=== PATIENT | female | born 1995 | race Caucasian/White ===

== ENCOUNTER 2021-11-23 17:56 | Emergency (ER) | payer MEDICAID, SELFPAY ==
[2021-11-23 17:57] VITALS: BP 134/65; PULSE 106; RESP 15; TEMP 36.3; O2SAT 99; BMI 25.2
--- NOTE | 2021-11-23 18:25 | EDS_ITS ---
HPI HPI - Female History of Present Illness Chief Complaint: Vag Bld, Preg Informant: patient Narrative Narrative: G3, P1 at 13 weeks gestation by ultrasound presents noting slight vaginal bleeding today. She is playing with her 3-year-old son states gentle bump on her lower abdomen, denied any pain or cramping. States went to the bathroom noted blood on her underwear. There is no clots. She is concerned due to have a miscarriage 6 months ago. Denies any urinary symptoms. She is on vitamins. Denies alcohol use. States she quit marijuana recently. She just recently moved here a week ago. She is seeing [facility] Dr. Franchesca smalls at [facility]. Appointment this Tuesday. She thinks her blood type is O+. Prior similar symptoms: Yes PFSH PFSH Medical History Anxiety Depression Former smoker Home Medications promethazine 12.5 mg PO Q6H PRN 11/23/21 [History Last Taken Unknown] Allergy/AdvReac Type Severity Reaction Status Date / Time No Known Allergies Allergy Verified 11/23/21 17:59 Surgical History H/O dilation and curettage History of placement of ear tubes History of tonsillectomy and adenoidectomy Social History Smoking Status: Former smoker ROS ROS ED Constitutional Constitutional ED: Denies chills, fever(s) or sweats Eyes Eyes: Denies change in vision ENT ENT ED: Denies dysphagia or sore throat Cardiovascular Cardiovascular: Denies chest pain, leg edema, palpitations or racing heartbeat Respiratory/Chest Respiratory/Chest: Denies cough, dyspnea or dyspnea on exertion Gastrointestinal Gastrointestinal: Denies abdominal pain, diarrhea, nausea or vomiting Genitourinary Genitourinary ED: Reports other Details: Vaginal spotting ; Denies dysuria, hematuria or urinary frequency Musculoskeletal Musculoskeletal: Denies back pain, extremity pain or neck pain Integumentary Denies rash or wounds Neurologic Neurologic: Denies headache(s), paresthesias or weakness EXAM Physical Exam Const Vital Signs: 11/23/21 17:57 11/23/21 20:18 Temperature 97.4 F L Temperature Source Temporal Pulse Rate 106 H 98 Respiratory Rate 15 15 Blood Pressure 134/65 H 138/74 H Blood Pressure Mean 88 95 Pulse Ox 99 99 Oxygen Delivery Method Room Air Room Air Positive well nourished and well developed General Appearance ED: well developed and NAD HEENT Reports moist mucous membranes normocephalic and atraumatic Eyes PERRL, EOMs intact bilaterally and conjunctivae normal General Eye ED: Yes normal appearance of both eyes Neck no lymphadenopathy and supple General: Negative for tenderness Chest Wall Chest: Negative for tenderness Resp normal respiratory effort and normal air movement Effort and Inspection: symmetric chest movement; Negative for respiratory distress Cardio regular rate, regular rhythm and no murmurs Peripheral Pulses: pulses 2+ throughout GI normal to inspection, nondistended, normoactive bowel sounds and non-tender GI Narrative: Mild gravid abdomen nontender. Palpation: Negative for guarding or rebound tenderness present Narrative: Patient declined Back/Spine no CVA tenderness and no thoracic nor lumbar tenderness Extremity normal to inspection General Extremety ED: Negative for edema or tenderness General Extremity: Negative for edema Neuro oriented x3 and no sensory deficits noted Sensorium / Orientation: awake and alert Skin no rashes or lesions noted and no wounds MDM MDM MDM Narrative Medical decision making narrative: Bedside ultrasound performed by myself heart tone 125+ movement. Placenta located on the right side of the u terus. Blood type O+. Urine noted 25 leukocytes and ketones. Culture sent. She has no urine symptoms. hCG was pending when reevaluation however patient states she needed to catch her ride and not 1 wait for this. She is given information to look up on electronic records. She has a follow-up with her OB this week. Discussed threatened miscarriage with the patient. She will monitor her symptoms. She currently 13 weeks no interventions at this time. Discussed pelvic rest. All questions were answered. Lab Data Labs: Laboratory Results - last 24 hr 11/23/21 11/23/21 11/23/21 18:30 18:30 18:30 HCG, Quant [id number] H Urine Color Urine Clarity Urine pH Ur Specific [place] Urine Protein Urine Glucose (UA) Urine Ketones Urine Occult Blood Urine Nitrite Urine Bilirubin Urine Urobilinogen Ur Leukocyte Esterase Urine RBC Urine WBC Ur Squamous Epith Cells Urine Bacteria Urine Mucus Blood Type TNP O POSITIVE 11/23/21 Unknown HCG, Quant Urine Color Yellow Urine Clarity Clear Urine pH 6.0 Ur Specific [place] 1.015 Urine Protein Negative Urine Glucose (UA) Normal Urine Ketones 150 A* Urine Occult Blood Negative Urine Nitrite Negative Urine Bilirubin Negative Urine Urobilinogen Normal Ur Leukocyte Esterase 25 H Urine RBC 0 SEEN Urine WBC 0 SEEN Ur Squamous Epith Cells 0-5 SEEN Urine Bacteria 0 SEEN Urine Mucus 0 SEEN Blood Type Discharge Plan Triage Chief Complaint: Vag Bld, Preg ED Provider: Vinay Mahoney Dx/Rx/DC Orders Clinical Impression: Threatened miscarriage, 13 weeks gestation of Instructions: ED Possible Miscarriage ... Prescriptions: No Action promethazine 12.5 mg Tablet 12.5 mg PO Q6H PRN (Reason: Nausea) RF: 0 Primary Care Provider: Lulu Lomas Referrals: Lulu Lomas [Primary Care Provider] - Activity Restrictions/Additional Instructions: Your blood type is O positive. heart tones 125. Positive motion on bedside ultrasound. Your hCG quant is pending. You need to leave. Follow-up with your OB doctor as scheduled.. Disposition Disposition: Home, Self Care Discharge Date/Time: 11/23/21 20:19
[2021-11-23 18:38] LABS: Bacteria 0 SEEN /hpf (None Seen); Mucous, Urine 0 SEEN /hpf (<or=2+); Red Blood Cells-Urine 0 SEEN /hpf (0-5); White Blood Cells 0 SEEN /hpf (0-5)
[2021-11-23 18:41] LABS: Color, Urine Yellow (Yellow); Glucose, Dipstick Normal (Normal); Leukocyte Esterase-Dipstick 25 /ul (Negative); Nitrite-Dipstick Negative (Negative); Occult Blood-Urine Negative /ul (Negative); Protein-Dipstick Negative (Negative); Specific Gravity, Urine 1.015 (1.002-1.030); Urine Bilirubin Dipstick Negative (Negative); Urine Clarity Clear (Clear); Urine Urobilinogen Normal (Normal)
[2021-11-23 18:51] LABS: Ketone-Dipstick 150 mg/dl (Negative)
[2021-11-23 18:52] LABS: Squamous Epithelial Cells - UA 0-5 SEEN /hpf (5-10)
[2021-11-23 20:18] VITALS: BP 138/74; PULSE 98; RESP 15; O2SAT 99
== END 2021-11-23 20:19 | disposition home or self-care (01) ==
PROVIDERS: Emergency Provider Emergency Medicine; PCP Family Medicine; Visit Provider Emergency Medicine
DX: O20.0 Threatened abortion (principal); Z87.891 Personal history of nicotine dependence; Z3A.13 13 weeks gestation of pregnancy
CPT/HCPCS: 81001; 84702; 86900; 86901; 87086; 87088; 99283; A4216

== ENCOUNTER 2022-04-27 13:05 | Outpatient (CLI) | payer MEDICAID, SELFPAY ==
[2022-04-27 13:21] VITALS: BMI 29.3
[2022-04-27 13:26] VITALS: BP 126/59; PULSE 74; TEMP 36.9
--- NOTE | 2022-04-27 13:36 | HP.PCM_ITS ---
History and Physical Date of Admission: 05/04/22 ? HPI: The patient is a 34 year old female presenting for pre-operative visit. She is scheduled for , for breech on 05/04/22. Procedure discussed along with risks, benefits and complications. Other alternatives discussed for management. Consent form signed? Yes. ? ? PAST MEDICAL HISTORY PAST MEDICAL HISTORY Diagnosis Date ? Anemia ? ? ASCUS of cervix with negative high risk HPV 2015 ? depression ? ? Dysmenorrhea ? ? Shingles ? ? Variants of migraine, not elsewhere classified, without mention of intractable migraine without mention of status migrainosus ? ? occassional ? ? PAST SURGICAL HISTORY PAST SURGICAL HISTORY Procedure Laterality Date ? UNSPECIFIED ORAL SURGERY PROCEDURE, BY REPORT ? ? ? [place] teeth extracted ? ? ? CURRENT MEDICATIONS Current Outpatient Medications Medication Sig Dispense Refill ? multivitamin ( TABLET) 28 mg iron- 800 mcg tab Take 1 tablet by mouth once daily. ? ? ? No current facility-administered medications for this visit. ? ? ALLERGIES: Promethazine ? PERSONAL HISTORY: SOCIAL HISTORY Social History ? Tobacco Use ? Smoking status: Never ? Smokeless tobacco: Never Vaping Use ? Vaping Use: Never used Substance Use Topics ? Alcohol use: Not Currently ? ? Comment: Occasionally, not while ? Drug use: No ? FAMILY HISTORY: FAMILY HISTORY FAMILY HISTORY Problem Relation Age of Onset ? Hypertension Mother ? ? Hypertension Father ? ? Diabetes Father ? ? Dementia Father ? ? other (gout) Father ? ? No Known Problems Brother ? ? No Known Problems Brother ? ? No Known Problems Brother ? ? Diabetes Brother ? ? other (Celiac) Brother ? ? Stroke Maternal Grandmother ? ? 11/2007, ? Multiple Sclerosis Maternal Grandfather ? ? Diabetes Paternal Grandfather ? ? Heart Failure Paternal Grandfather ? ? No Known Problems Daughter ? ? No Known Problems Daughter ? ? ? REVIEW OF SYMPTOMS: GENERAL: denies fevers or chills ENDOCRINOLOGY: has not been on steroids Cardiology : denies palpitations or chest pain Respiratory: denies SOB or cough Hematology: denies history of prolonged bleeding or easy bruising or VTE Allergy: Denies history of personal or family history of allergy to anesthesia ? PHYSICAL EXAMINATION: ? VITALS: Last menstrual period 08/01/2021. ? GENERAL: The patient is well nourished, well hydrated in no acute distress. , The patient is oriented to time, place, and person. NECK: Supple. No lynphadenopathy, normal thyroid, no thyromegaly. LUNGS: Clear to auscultation bilaterally. no wheezes, rhonchi or rales HEART: Regular rate and rhythm, Normal heart sounds, and No murmurs or gallops GENITALIA: Normal external genitalia, Urethral meatus normal, Bladder nontender, normal vagina and normal vaginal tone, normal cervix, normal uterus, size and consistency, normal adnexa without masses or tenderness, and perineum WNL WET PREP: Not indicated ? IMPRESSION: Estimated Date of Delivery: 05/08/22 ? PLAN: The risks/benefits/alternatives and personal involved for the planned c- section were reviewed with the patient. Her questions were answered to her sati sfaction and she desires to proceed. Consent was signed. I reviewed with her postop instructions and expectations. ? ? I have reviewed and updated past medical and surgical history, medications and allergies Assessment & Plan Assessment/Plan (1) Breech presentation at : (2) 39 weeks gestation of : (3) Multigravida in third trimester:
[2022-04-27 14:48] LABS: Color, Urine Straw (Yellow); Glucose, Dipstick Normal (Normal); Ketone-Dipstick Negative (Negative); Leukocyte Esterase-Dipstick 500 /ul (Negative); Nitrite-Dipstick Negative (Negative); Occult Blood-Urine Negative /ul (Negative); Protein-Dipstick Negative (Negative); Urine Bilirubin Dipstick Negative (Negative); Urine Clarity Clear (Clear); Urine Urobilinogen Normal (Normal)
--- NOTE | 2022-04-27 16:59 | OB.TRI.HP_ITS ---
HPI - General General Date of Admission: 04/27/22 Date of Service: 04/27/22 Chief Complaint: Left sided pain in HPI Narrative JANE CASTORENA, is a 27 F who presents complaining of some abdominal pain and cramping. Patient gets care at an outside facility. Has been treated for recurrent urinary tract infections. PFSH PFS Medical History Anxiety Depression Former smoker Home Medications [id number] 1 mg tablet 1 tab PO DAILY 04/27/22 [History Last Taken 04/26/22 21:00] Allergy/AdvReac Type Severity Reaction Status Date / Time No Known Allergies Allergy Verified 04/27/22 13:34 Surgical History H/O dilation and curettage History of placement of ear tubes History of tonsillectomy and adenoidectomy Social History Smoking Status: Former smoker NST FHR Rate Baby A Baseline: 135 Variability:: Moderate Accelerations:: 15 x 15 Decelerations:: None NST Reactive:: Yes FHR Category:: Category I Uterine Activity:: No regular contractions Assessment & Plan (1) Multigravida in third trimester: (2) 35 weeks gestation of : PLAN: Nonstress test is reactive. No evidence of active labor. No evidence of preeclampsia. No evidence of pyelonephritis. Urine appears mostly normal e xcept for some leukoesterase. Will send urine culture. Follow-up with her obstetrical office within the week or return as needed. Just finished antibiotics for UTI so will not repeat antibiotics unless culture comes back positive because suspicion is low. Suspect is mostly musculoskeletal discomfort. (3) Abdominal cramping affecting :
== END 2022-04-27 15:15 | disposition home or self-care (01) ==
LOC: WPOUT 13:15 → WP 13:15
PROVIDERS: PCP Family Medicine; Referring Provider Obstetrics & Gynecology; Visit Provider Obstetrics & Gynecology
DX: O26.893 Other specified pregnancy related conditions, third trimester (principal); R10.9 Unspecified abdominal pain; Z87.891 Personal history of nicotine dependence; Z87.440 Personal history of urinary (tract) infections; Z3A.35 35 weeks gestation of pregnancy
CPT/HCPCS: 59025; 59050; 81002; 87077; 87086; 87088; 87186; 99218; G0378

== ENCOUNTER 2023-02-25 18:31 | Emergency (ER) | payer MEDICAID, SELFPAY ==
[2023-02-25 18:32] VITALS: BP 108/59; PULSE 78; RESP 19; TEMP 36.4; O2SAT 100; BMI 27.8
[2023-02-25 19:13] VITALS: BP 108/59; PULSE 78; RESP 19; TEMP 36.4; O2SAT 100
--- NOTE | 2023-02-25 19:19 | EX.ED.VIS.EY ---
HPI History of Present Illness Chief Complaint: Eye Problem Detail of Chief Complaint: Slight redness to eye and itching Informant: patient Onset/Context/Timing Location: Bilateral Eyes Onset: Today Context: Sudden Onset Timing: Continuous Current Severity: Mild Maximum Severity: Mild Worsened by: Nothing Relieved by: Nothing Associated Symptoms Associated Symptoms - Eyes: Itching, Matting and Redness; Negative for Burning, Crusting, Drainage, Eyelid swelling, Foreign body sensation, Pain or Photophobia History of injury: No Visual correction: None Narrative Narrative: Patient is a 47-year-old woman who was sent into the emergency department because her boss wanted her evaluated for pinkeye. She does have a child who has conjunctivitis. She does not wear contacts. Patient has no other complaints Prior similar symptoms: No Recent Illness/Hospitalization: No PFSH PFSH Medical History Anxiety Depression Former smoker Home Medications prednisolone acetate 1 % eye drops,suspension (Pred Forte) 1 drp EACH EYE TID #5 mL 02/25/23 [Rx Last Taken Unknown] Allergy/AdvReac Type Severity Reaction Status Date / Time No Known Allergies Allergy Verified 02/25/23 18:34 Surgical History H/O dilation and curettage History of placement of ear tubes History of tonsillectomy and adenoidectomy Social History (Updated 02/25/23 @ 19:[address] Aric Bosch MD) household members: children Smoking Status: Current every day smoker tobacco type: e-cigarettes substance use type: does not use ROS ROS ED Constitutional Constitutional ED: Denies chills, fever(s), subjective, sweats or weight loss Eyes Eyes: Reports other Details: Per HPI ; Denies blurry vision, change in vision or diplopia ENT ENT ED: Reports rhinorrhea; Denies ear pain or sore throat Cardiovascular Cardiovascular: Denies chest pain Respiratory/Chest Respiratory/Chest: Denies cough or dyspnea Gastrointestinal Gastrointestinal: Denies nausea or vomiting Neurologic Neurologic: Denies headache(s), paresthesias or weakness EXAM Physical Exam Const Vital Signs: 02/25/23 18:32 02/25/23 19:13 Temperature 97.5 F L 97.5 F L Temperature Source Temporal Temporal Pulse Rate 78 78 Respiratory Rate 19 H 19 H Blood Pressure 108/59 L 108/59 L Blood Pressure Mean 75 75 Pulse Ox 100 100 Oxygen Delivery Method Room Air Positive well nourished and well developed General Appearance ED: well developed and NAD HEENT HEENT Narrative: Head is atraumatic normocephalic. Ears are normal. Nares are patent. Posterior pharynx. Eyes Eyes Narrative: Can bePatient has slight scleral laterally. Patient has clear drainage noted. The conjunctive is slightly injected. Pupils are equal round reactive. Extraocular muscles are intact. Sclera is anicteric. There is no APD. There is no palpable. Neck no lymphadenopathy, supple and no JVD Resp normal respiratory effort Cardio regular rate and regular rhythm Neuro oriented x3, CN's II-XII intact bilaterally and moves all extremities Sensorium / Orientation: alert Psych Psych Narrative: Mood and affect are normal. Skin no wounds Lesions: no lesions Rashes: no rashes MDM MDM MDM Narrative Medical decision making narrative: History and physical is consistent with an allergic conjunctivitis. Will discharge with prescription for Pred forte drops. Discharge Plan Triage Chief Complaint: Eye Problem ED Provider: Aric Bosch Dx/Rx/DC Orders Clinical Impression: Acute allergic conjunctivitis of both eyes Instructions: ED Conjunctivitis, Allergic Prescriptions: New prednisolone acetate [Pred Forte] 1 % drops,suspension 1 drp EACH EYE TID Qty: 5 0RF Stand Alone Forms: ED Work / School Excuse Primary Care Provider: Percy Nunez Referrals: Percy Nunez MD [Primary Care Provider] - 1 Week if not improving Disposition Disposition: Home, Self Care
--- NOTE | 2023-02-25 19:32 | ED.RN ---
Pt comes out of her room asking if she has to stay in the room. This RN states that she needs to stay in there until she is registered and has discharge paperwork. Patient comes out of room again asking to see another ER Doctor, this RN educates patient that she can only be seen by one ED physician per visit and that she cannot have a second opinion in the same in the same visit. Patient is now on the phone with someone talking to nurses at the nurses station from her doorway. Pt is requesting documentation on why she cannot see another doctor and asking for documentation that the doctor said she doesn't have pink eye. This RN explained that her paperwork will have a diagnoses and explanation on it as well as the prescription. After patient was registered and given her discharge paperwork patient walks out saying that we did not treat her and that she was going somewhere else
== END 2023-02-25 19:41 | disposition home or self-care (01) ==
PROVIDERS: Emergency Provider Emergency Medicine; PCP Family Medicine; Visit Provider Emergency Medicine
DX: H10.13 Acute atopic conjunctivitis, bilateral (principal); F17.290 Nicotine dependence, other tobacco product, uncomplicated
CPT/HCPCS: 99282